=== PATIENT | female | born 1955 | race Caucasian/White ===

== ENCOUNTER 2017-12-25 12:46 | Inpatient (IN) | payer OTHER ==
[~2017-12-25] VITALS: Ht 172.7 cm; Wt 114.8 kg
[2017-12-25 12:56] VITALS: BP 89/71
[2017-12-25] MEDS ORDERED: INSULIN REGULAR, HUMAN 100 UNIT/ML VIAL IVP ONE ×2 (13:05→14:15)
[2017-12-25] MEDS ORDERED: ALBUTEROL 0.083% 2.5 MG/3 ML NEBU INH ONE (13:05)
[2017-12-25] MEDS ORDERED: IPRATROPIUM 0.02% 0.5 MG/2.5 ML NEBU INH ONE (13:05)
[2017-12-25 13:31] LABS: MEAN CORPUSCULAR HEMOGLOBIN 25 pg (27-31); MEAN CORPUSCULAR HGB CONC 31 g/dL (33-37); MEAN CORPUSCULAR VOLUME 81.7 fL (80-94); PLATELET COUNT (AUTO) 377 K/uL (140-450); RED BLOOD CELL COUNT(AUTO) 2.47 MIL/uL (4.20-5.40); RED CELL DISTRIBUTION WIDTH 16.9 % (11.6-13.7); WHITE BLOOD COUNT (AUTO) 20.5 K/uL (4.8-10.8)
[2017-12-25 13:43] LABS: ALBUMIN 2.7 g/dL (3.4-5.0); ANION GAP 24.8 (8-16); CARBON DIOXIDE 19.8 mmol/L (21-32); CREATININE 1.9 mg/dL (0.6-1.3); HEMATOCRIT 20.1 % (36-48); HEMOGLOBIN 6.3 g/dL (12.0-16.0); POTASSIUM 5.6 mmol/L (3.5-5.1); TOTAL BILIRUBIN 0.5 mg/dL (0.0-1.0)
[2017-12-25] MEDS ORDERED: ATOR40TA PO (13:43)
[2017-12-25] MEDS ORDERED: METO50TE2 PO (13:43)
[2017-12-25] MEDS ORDERED: DILT-135 (13:43)
[2017-12-25] MEDS ORDERED: PRED10TA5 PO ×2 (13:43)
[2017-12-25] MEDS ORDERED: WARF2.5T77 PO (13:43)
[2017-12-25] MEDS ORDERED: GABA300C PO (13:43)
[2017-12-25] MEDS ORDERED: FURO-572 PO (13:43)
[2017-12-25] MEDS ORDERED: WARF-18 PO (13:43)
[2017-12-25 13:45] LABS: LYMPHOCYTES % (MANUAL) 7 % (20-46); MONOCYTES % (MANUAL) 5 % (5-12)
[2017-12-25] MEDS ORDERED: DIGOXIN 0.25 MG/ML AMP IV ONE (13:45)
[2017-12-25 13:49] LABS: D-DIMER < 100 ng/ml (0-400)
[2017-12-25 13:57] LABS: PROTHROMBIN TIME 53.1 secs (10.8-13.4)
[2017-12-25] MEDS ORDERED: NACL 0.9% 1,000 ML IV SCH (14:11)
[2017-12-25] MEDS ORDERED: SODIUM BICARBONATE 8.4% PFS 50 MEQ/50 ML SYR IVP ONE (14:15)
[2017-12-25] MEDS ORDERED: SODIUM POLYSTYRENE 15 GM/60 ML UDBTL PO ONE (14:15)
[2017-12-25] MEDS ORDERED: ACETAMINOPHEN 325 MG TAB PO PRN (15:50)
[2017-12-25 17:00] VITALS: BP 100/53
[2017-12-25] MEDS: DILTIAZEM 30 MG TAB PO SCH ×3 (18:00→23:54)
[2017-12-25] MEDS ORDERED: DIGOXIN 0.25 MG/ML AMP IV SCH (18:55)
[2017-12-25] MEDS ORDERED: ALBUTEROL 0.083% 2.5 MG/3 ML NEBU IH SCH (19:00)
[2017-12-25] MEDS: METOPROLOL 25 MG TAB PO SCH (19:14)
[2017-12-25 19:25] VITALS: BP 123/71
[2017-12-25] MEDS: FUROSEMIDE 20 MG/2 ML VIAL IVP SCH (21:00)
[2017-12-25] MEDS ORDERED: FUROSEMIDE 40 MG/4 ML VIAL IVP SCH (22:00)
[2017-12-25] MEDS: INSULIN LANTUS 100 UNITS/ML 10 ML VIAL SUBQ SCH (22:28)
[2017-12-25 22:36] LABS: CREATINE KINASE MB 1.5 ng/mL (0-3.6)
[2017-12-25] MEDS ORDERED: AMIODARONE 450 MG in DEXTROSE 5% 250 ML IV SCH (23:35)
[2017-12-25] MEDS ORDERED: AMIODARONE 450 MG/9 ML VIAL IV ONE (23:49)
[2017-12-26] VITALS (12 sets, daily range): BP systolic 91–131; BP diastolic 50–87
[2017-12-26] MEDS ORDERED: AMIODARONE 150 MG in DEXTROSE 5% 100 ML IV SCH ×2
[2017-12-26] MEDS ORDERED: AMIODARONE 150 MG/3 ML VIAL IV ONE (00:02)
[2017-12-26] MEDS: ALBUTEROL 0.083% 2.5 MG/3 ML NEBU IH PRN (00:41)
[2017-12-26] MEDS: DILTIAZEM 30 MG TAB PO SCH ×4 (05:50→23:32)
[2017-12-26 07:00] LABS: HEMATOCRIT 25.3 % (36-48); HEMOGLOBIN 8.1 g/dL (12.0-16.0); MEAN CORPUSCULAR HEMOGLOBIN 27 pg (27-31); MEAN CORPUSCULAR HGB CONC 32 g/dL (33-37); MEAN CORPUSCULAR VOLUME 82.5 fL (80-94); PLATELET COUNT (AUTO) 249 K/uL (140-450); RED BLOOD CELL COUNT(AUTO) 3.07 MIL/uL (4.20-5.40); RED CELL DISTRIBUTION WIDTH 17.1 % (11.6-13.7); WHITE BLOOD COUNT (AUTO) 16.2 K/uL (4.8-10.8)
[2017-12-26 08:49] LABS: PHOSPHORUS 3.7 mg/dL (2.5-4.9)
[2017-12-26 08:53] LABS: ALBUMIN 2.7 g/dL (3.4-5.0); ANION GAP 14.5 (8-16); CARBON DIOXIDE 30.1 mmol/L (21-32); CREATININE 1.6 mg/dL (0.6-1.3); POTASSIUM 3.6 mmol/L (3.5-5.1); TOTAL BILIRUBIN 0.6 mg/dL (0.0-1.0)
[2017-12-26] MEDS ORDERED: ASPIRIN 81 MG TAB.CHEW PO SCH (09:00)
[2017-12-26] MEDS: METOPROLOL 25 MG TAB PO SCH ×2 (09:07→20:19)
[2017-12-26] MEDS: FUROSEMIDE 20 MG/2 ML VIAL IVP SCH ×2 (09:07→20:19)
[2017-12-26] MEDS: INSULIN LANTUS 100 UNITS/ML 10 ML VIAL SUBQ SCH ×2 (09:15→20:24)
[2017-12-26 09:18] LABS: LYMPHOCYTES % (MANUAL) 8 % (20-46); MONOCYTES % (MANUAL) 4 % (5-12)
[2017-12-26] MEDS ORDERED: DEXTROSE 50% 50 ML SYR IVP PRN (12:00)
[2017-12-26] MEDS: INSULIN LISPRO SLIDING SCALE 100 UNITS/ML VIAL SUBQ PRN ×3 (12:05→20:22)
[2017-12-26] MEDS: MORPHINE SULFATE 4 MG/ML SYR IVP PRN (12:07)
[2017-12-26] MEDS ORDERED: PROBIOTIC SCREEN 1 EA MISC MC PRN (14:50)
[2017-12-26] MEDS: BLOOD GLUCOSE MONITORING 1 DEV DEV FS SCH ×2 (16:32→20:20)
[2017-12-26 17:25] LABS: CREATINE KINASE MB 1.1 ng/mL (0-3.6)
[2017-12-26] MEDS: ONDANSETRON 4 MG/2 ML VIAL IVP PRN (17:33)
[2017-12-27] VITALS (12 sets, daily range): BP systolic 93–122; BP diastolic 51–67
[2017-12-27] MEDS: DILTIAZEM 30 MG TAB PO SCH ×3 (05:22→17:12)
[2017-12-27 07:15] LABS: BASOPHILS # (AUTO) 0.1 K/uL (0.00-0.22); BASOPHILS % (AUTO) 0.5 % (0.0-2.0); EOSINOPHILS # (AUTO) 0.2 K/uL (0-0.4); EOSINOPHILS % (AUTO) 1.5 % (0.0-4.0); HEMOGLOBIN 7.3 g/dL (12.0-16.0); LYMPHOCYTES # (AUTO) 1.2 K/uL (2.5-16.5); LYMPHOCYTES % (AUTO) 9.3 % (20.5-51.1); MEAN CORPUSCULAR HEMOGLOBIN 26 pg (27-31); MEAN CORPUSCULAR HGB CONC 32 g/dL (33-37); MEAN CORPUSCULAR VOLUME 83.5 fL (80-94); MONOCYTES # (AUTO) 0.7 K/uL (0.8-1.0); MONOCYTES % (AUTO) 5.7 % (1.7-9.3); NEUTROPHILS # (AUTO) 10.6 K/uL (1.8-7.7); PLATELET COUNT (AUTO) 203 K/uL (140-450); RED BLOOD CELL COUNT(AUTO) 2.75 MIL/uL (4.20-5.40); RED CELL DISTRIBUTION WIDTH 17.2 % (11.6-13.7); WHITE BLOOD COUNT (AUTO) 12.7 K/uL (4.8-10.8)
[2017-12-27] MEDS: BLOOD GLUCOSE MONITORING 1 DEV DEV FS SCH ×4 (07:37→20:08)
[2017-12-27] MEDS: INSULIN LISPRO SLIDING SCALE 100 UNITS/ML VIAL SUBQ PRN ×3 (07:40→20:28)
[2017-12-27 07:41] LABS: ANION GAP 8.1 (8-16); CARBON DIOXIDE 34.9 mmol/L (21-32); CREATININE 0.8 mg/dL (0.6-1.3)
[2017-12-27] MEDS: METOPROLOL 25 MG TAB PO SCH ×2 (08:46→20:24)
[2017-12-27] MEDS: FUROSEMIDE 20 MG/2 ML VIAL IVP SCH ×2 (08:46→20:24)
[2017-12-27] MEDS: INSULIN LANTUS 100 UNITS/ML 10 ML VIAL SUBQ SCH ×2 (08:54→20:27)
[2017-12-27] MEDS: ONDANSETRON 4 MG/2 ML VIAL IVP PRN (09:54)
[2017-12-27] MEDS: MORPHINE SULFATE 4 MG/ML SYR IVP PRN (09:54)
[2017-12-27] MEDS ORDERED: KCL 20 MEQ/WATER INJ PREMIX 200 ML IV SCH (10:00)
[2017-12-27] MEDS ORDERED: GABAPENTIN 300 MG CAP ONE (20:21)
[2017-12-27] MEDS: GABAPENTIN 300 MG CAP PO SCH (20:24)
[2017-12-28] VITALS (10 sets, daily range): BP systolic 92–133; BP diastolic 46–75
[2017-12-28] MEDS: DILTIAZEM 30 MG TAB PO SCH ×4 (06:03→17:38)
[2017-12-28] MEDS: BLOOD GLUCOSE MONITORING 1 DEV DEV FS SCH ×4 (06:16→20:55)
[2017-12-28 07:12] LABS: BASOPHILS % (AUTO) 0.1 % (0.0-2.0); EOSINOPHILS # (AUTO) 0.1 K/uL (0-0.4); EOSINOPHILS % (AUTO) 1.4 % (0.0-4.0); HEMATOCRIT 27.5 % (36-48); HEMOGLOBIN 8.8 g/dL (12.0-16.0); LYMPHOCYTES # (AUTO) 1.2 K/uL (2.5-16.5); LYMPHOCYTES % (AUTO) 12.4 % (20.5-51.1); MEAN CORPUSCULAR HEMOGLOBIN 27 pg (27-31); MEAN CORPUSCULAR HGB CONC 32 g/dL (33-37); MEAN CORPUSCULAR VOLUME 84.3 fL (80-94); MONOCYTES # (AUTO) 0.6 K/uL (0.8-1.0); MONOCYTES % (AUTO) 6.2 % (1.7-9.3); NEUTROPHILS # (AUTO) 7.9 K/uL (1.8-7.7); NEUTROPHILS % (AUTO) 79.9 % (42.2-75.2); PLATELET COUNT (AUTO) 189 K/uL (140-450); RED BLOOD CELL COUNT(AUTO) 3.26 MIL/uL (4.20-5.40); RED CELL DISTRIBUTION WIDTH 17.3 % (11.6-13.7); WHITE BLOOD COUNT (AUTO) 9.9 K/uL (4.8-10.8)
[2017-12-28 07:27] LABS: ALBUMIN 2.4 g/dL (3.4-5.0); ANION GAP 6.1 (8-16); CARBON DIOXIDE 37.2 mmol/L (21-32); CREATININE 0.7 mg/dL (0.6-1.3); POTASSIUM 3.3 mmol/L (3.5-5.1); TOTAL BILIRUBIN 0.5 mg/dL (0.0-1.0)
[2017-12-28] MEDS: METOPROLOL 25 MG TAB PO SCH ×2 (08:35→20:49)
[2017-12-28] MEDS: FUROSEMIDE 20 MG/2 ML VIAL IVP SCH ×2 (08:35→20:48)
[2017-12-28] MEDS: GABAPENTIN 300 MG CAP PO SCH ×3 (08:36→20:49)
[2017-12-28] MEDS: INSULIN LANTUS 100 UNITS/ML 10 ML VIAL SUBQ SCH ×2 (08:38→20:44)
[2017-12-28] MEDS ORDERED: POTASSIUM CHLORIDE 10 MEQ TABER PO SCH (09:00)
[2017-12-28] MEDS: INSULIN LISPRO SLIDING SCALE 100 UNITS/ML VIAL SUBQ PRN ×3 (11:51→20:46)
[2017-12-28] MEDS ORDERED: GABAPENTIN 300 MG CAP PO SCH (17:00)
[2017-12-28] MEDS ORDERED: INTERDRY CLOTH TP SCH (22:20)
[2017-12-29] VITALS: BP 122/68
[2017-12-29] MEDS: DILTIAZEM 30 MG TAB PO SCH ×4 (01:02→18:32)
[2017-12-29 04:00] VITALS: BP 128/67
[2017-12-29] MEDS: GABAPENTIN 300 MG CAP PO SCH ×3 (04:30→21:05)
[2017-12-29 07:04] LABS: EOSINOPHILS # (AUTO) 0.1 K/uL (0-0.4); EOSINOPHILS % (AUTO) 1.3 % (0.0-4.0); HEMATOCRIT 28.4 % (36-48); HEMOGLOBIN 9.4 g/dL (12.0-16.0); LYMPHOCYTES # (AUTO) 1.1 K/uL (2.5-16.5); LYMPHOCYTES % (AUTO) 10.6 % (20.5-51.1); MEAN CORPUSCULAR HEMOGLOBIN 28 pg (27-31); MEAN CORPUSCULAR HGB CONC 33 g/dL (33-37); MONOCYTES # (AUTO) 0.8 K/uL (0.8-1.0); MONOCYTES % (AUTO) 7.4 % (1.7-9.3); NEUTROPHILS # (AUTO) 8.5 K/uL (1.8-7.7); NEUTROPHILS % (AUTO) 80.7 % (42.2-75.2); PLATELET COUNT (AUTO) 206 K/uL (140-450); RED BLOOD CELL COUNT(AUTO) 3.34 MIL/uL (4.20-5.40); RED CELL DISTRIBUTION WIDTH 17.1 % (11.6-13.7); WHITE BLOOD COUNT (AUTO) 10.5 K/uL (4.8-10.8)
[2017-12-29 07:23] LABS: ALBUMIN 2.7 g/dL (3.4-5.0); ANION GAP 9.3 (8-16); CARBON DIOXIDE 34.6 mmol/L (21-32); CREATININE 0.8 mg/dL (0.6-1.3); POTASSIUM 3.9 mmol/L (3.5-5.1); TOTAL BILIRUBIN 0.6 mg/dL (0.0-1.0)
[2017-12-29] MEDS: BLOOD GLUCOSE MONITORING 1 DEV DEV FS SCH ×4 (07:28→21:04)
[2017-12-29 07:42] LABS: PROTHROMBIN TIME 14.7 secs (10.8-13.4)
[2017-12-29 08:00] VITALS: BP 111/72
[2017-12-29] MEDS: FUROSEMIDE 20 MG/2 ML VIAL IVP SCH ×2 (08:56→21:05)
[2017-12-29] MEDS: METOPROLOL 25 MG TAB PO SCH ×2 (08:56→21:05)
[2017-12-29] MEDS: INSULIN LANTUS 100 UNITS/ML 10 ML VIAL SUBQ SCH ×2 (09:01→21:16)
[2017-12-29] MEDS: INTERDRY CLOTH TP SCH ×2 (09:02→21:06)
[2017-12-29] MEDS: ALBUTEROL 0.083% 2.5 MG/3 ML NEBU IH PRN ×2 (10:47→19:20)
[2017-12-29 12:00] VITALS: BP 128/72
[2017-12-29] MEDS: INSULIN LISPRO SLIDING SCALE 100 UNITS/ML VIAL SUBQ PRN ×3 (12:29→21:16)
[2017-12-29] MEDS: AMPICILLIN 1,000 MG in NACL 0.9% 50 ML IV SCH ×2 (13:47→18:37)
[2017-12-29] MEDS: LACTULOSE 20 GM/30 ML UDC PO SCH ×2 (13:47→18:31)
[2017-12-29] MEDS: SENNA 8.6 MG TAB PO SCH ×3 (13:47→21:05)
[2017-12-29 16:00] VITALS: BP 121/64
[2017-12-29] MEDS ORDERED: BOWEL EVACUANT DRINK 4,000 ML PDS PO SCH (16:00)
[2017-12-29 20:00] VITALS: BP 116/61
[2017-12-29] MEDS ORDERED: MAGNESIUM CITRATE 300 ML BTL PO SCH (21:00)
[2017-12-30] VITALS (8 sets, daily range): BP systolic 90–139; BP diastolic 45–74
[2017-12-30] MEDS: DILTIAZEM 30 MG TAB PO SCH ×4 (00:09→17:22)
[2017-12-30] MEDS: AMPICILLIN 1,000 MG in NACL 0.9% 50 ML IV SCH ×4 (00:09→17:22)
[2017-12-30] MEDS: GABAPENTIN 300 MG CAP PO SCH ×3 (05:13→20:13)
[2017-12-30] MEDS: INSULIN LISPRO SLIDING SCALE 100 UNITS/ML VIAL SUBQ PRN ×2 (06:30→20:26)
[2017-12-30] MEDS: BLOOD GLUCOSE MONITORING 1 DEV DEV FS SCH ×4 (06:31→20:23)
[2017-12-30 06:52] LABS: BASOPHILS % (AUTO) 0.1 % (0.0-2.0); EOSINOPHILS # (AUTO) 0.1 K/uL (0-0.4); EOSINOPHILS % (AUTO) 1.3 % (0.0-4.0); HEMATOCRIT 26.8 % (36-48); HEMOGLOBIN 8.7 g/dL (12.0-16.0); LYMPHOCYTES # (AUTO) 1.1 K/uL (2.5-16.5); LYMPHOCYTES % (AUTO) 11.4 % (20.5-51.1); MEAN CORPUSCULAR HEMOGLOBIN 28 pg (27-31); MEAN CORPUSCULAR HGB CONC 32 g/dL (33-37); MEAN CORPUSCULAR VOLUME 85.3 fL (80-94); MONOCYTES # (AUTO) 0.6 K/uL (0.8-1.0); MONOCYTES % (AUTO) 6.9 % (1.7-9.3); NEUTROPHILS # (AUTO) 7.5 K/uL (1.8-7.7); NEUTROPHILS % (AUTO) 80.3 % (42.2-75.2); PLATELET COUNT (AUTO) 194 K/uL (140-450); RED BLOOD CELL COUNT(AUTO) 3.14 MIL/uL (4.20-5.40); RED CELL DISTRIBUTION WIDTH 18.5 % (11.6-13.7); WHITE BLOOD COUNT (AUTO) 9.3 K/uL (4.8-10.8)
[2017-12-30 07:26] LABS: ALBUMIN 2.6 g/dL (3.4-5.0); ANION GAP 11.4 (8-16); CARBON DIOXIDE 33.3 mmol/L (21-32); CREATININE 0.8 mg/dL (0.6-1.3); POTASSIUM 3.7 mmol/L (3.5-5.1); TOTAL BILIRUBIN 0.6 mg/dL (0.0-1.0)
[2017-12-30] MEDS: METOPROLOL 25 MG TAB PO SCH ×2 (08:58→20:12)
[2017-12-30] MEDS: SENNA 8.6 MG TAB PO SCH ×2 (08:58→12:19)
[2017-12-30] MEDS: LACTULOSE 20 GM/30 ML UDC PO SCH ×2 (08:58→12:19)
[2017-12-30] MEDS: FUROSEMIDE 20 MG/2 ML VIAL IVP SCH ×2 (08:59→20:16)
[2017-12-30] MEDS: INSULIN LANTUS 100 UNITS/ML 10 ML VIAL SUBQ SCH ×2 (08:59→20:26)
[2017-12-30] MEDS: INTERDRY CLOTH TP SCH ×2 (09:00→20:28)
[2017-12-30 13:34] LABS: PROTHROMBIN TIME 10.3 secs (10.8-13.4)
[2017-12-30] MEDS ORDERED: MIDAZOLAM 2 MG/2 ML VIAL ONE ×2 (13:48→13:52)
[2017-12-30] MEDS ORDERED: LIDOCAINE 2% 100 MG/5 ML UJET TP ONE (13:48)
[2017-12-30] MEDS ORDERED: fentaNYL 0.05 MG/ML VIAL ONE (13:48)
[2017-12-30] MEDS ORDERED: diphenhydrAMINE 50 MG/ML VIAL ONE (13:52)
[2017-12-30] MEDS: fentaNYL 0.05 MG/ML VIAL ONE ×4 (14:02→14:12)
[2017-12-30] MEDS ORDERED: WARFARIN 5 MG TAB PO SCH ×2 (17:00)
[2017-12-30] MEDS: FERROUS SULFATE 325 MG TABEC PO SCH (17:21)
[2017-12-30] MEDS: SUCRALFATE 1 GM TAB PO SCH (17:21)
[2017-12-30] MEDS: PANTOPRAZOLE 40 MG TABEC PO SCH (20:13)
[2017-12-30] MEDS ORDERED: ATORVASTATIN 20 MG TAB PO SCH (21:00)
[2017-12-31] VITALS: BP 117/66
[2017-12-31] MEDS: DILTIAZEM 30 MG TAB PO SCH ×3 (00:26→12:11)
[2017-12-31] MEDS: AMPICILLIN 1,000 MG in NACL 0.9% 50 ML IV SCH (00:26)
[2017-12-31 04:00] VITALS: BP 110/60
[2017-12-31] MEDS: GABAPENTIN 300 MG CAP PO SCH ×2 (05:17→12:11)
[2017-12-31] MEDS: BLOOD GLUCOSE MONITORING 1 DEV DEV FS SCH ×2 (05:50→12:15)
[2017-12-31 06:46] LABS: BASOPHILS % (AUTO) 0.2 % (0.0-2.0); EOSINOPHILS # (AUTO) 0.1 K/uL (0-0.4); HEMATOCRIT 25.3 % (36-48); HEMOGLOBIN 8.2 g/dL (12.0-16.0); LYMPHOCYTES # (AUTO) 0.7 K/uL (2.5-16.5); MEAN CORPUSCULAR HEMOGLOBIN 28 pg (27-31); MEAN CORPUSCULAR HGB CONC 32 g/dL (33-37); MEAN CORPUSCULAR VOLUME 85.4 fL (80-94); MONOCYTES # (AUTO) 0.7 K/uL (0.8-1.0); MONOCYTES % (AUTO) 7.5 % (1.7-9.3); NEUTROPHILS # (AUTO) 7.4 K/uL (1.8-7.7); NEUTROPHILS % (AUTO) 83.3 % (42.2-75.2); PLATELET COUNT (AUTO) 186 K/uL (140-450); RED BLOOD CELL COUNT(AUTO) 2.96 MIL/uL (4.20-5.40); RED CELL DISTRIBUTION WIDTH 18.6 % (11.6-13.7); WHITE BLOOD COUNT (AUTO) 8.9 K/uL (4.8-10.8)
[2017-12-31] MEDS: INSULIN LISPRO SLIDING SCALE 100 UNITS/ML VIAL SUBQ PRN ×2 (06:47→13:06)
[2017-12-31] MEDS: SUCRALFATE 1 GM TAB PO SCH ×2 (06:49→12:11)
[2017-12-31 07:26] LABS: ANION GAP 10.3 (8-16); CARBON DIOXIDE 31.8 mmol/L (21-32); CREATININE 0.8 mg/dL (0.6-1.3); POTASSIUM 3.1 mmol/L (3.5-5.1)
[2017-12-31 07:28] LABS: PROTHROMBIN TIME 10.2 secs (10.8-13.4)
[2017-12-31 08:00] VITALS: BP 115/54
[2017-12-31] MEDS ORDERED: LOSARTAN 25 MG TAB PO SCH (09:00)
[2017-12-31] MEDS ORDERED: LACTULOSE 20 GM/30 ML UDC PO SCH (09:00)
[2017-12-31] MEDS ORDERED: ENOXAPARIN 40 MG/0.4 ML SYR SUBQ SCH (09:00)
[2017-12-31] MEDS: METOPROLOL 25 MG TAB PO SCH (09:32)
[2017-12-31] MEDS: PANTOPRAZOLE 40 MG TABEC PO SCH (09:33)
[2017-12-31] MEDS: FUROSEMIDE 20 MG/2 ML VIAL IVP SCH (09:33)
[2017-12-31] MEDS: FERROUS SULFATE 325 MG TABEC PO SCH ×2 (09:33→12:11)
[2017-12-31] MEDS: INSULIN LANTUS 100 UNITS/ML 10 ML VIAL SUBQ SCH (09:35)
[2017-12-31] MEDS ORDERED: POTASSIUM CHLORIDE 10 MEQ TABER PO SCH (11:21)
[2017-12-31 12:00] VITALS: BP 107/74
[2017-12-31] MEDS: INTERDRY CLOTH TP SCH (13:10)
[2017-12-31] MEDS ORDERED: AMOX500C25 PO (13:18)
[2017-12-31] MEDS ORDERED: CLAR500T PO (13:18)
[2017-12-31] MEDS ORDERED: PANT40EC28 PO (13:18)
[2017-12-31] MEDS ORDERED: LOSA25TA1 PO (13:18)
[2017-12-31] MEDS ORDERED: LANTUS SUBQ (13:18)
[2017-12-31] MEDS ORDERED: FURO40TA9 PO (13:18)
[2017-12-31] MEDS ORDERED: WARFARIN 5 MG TAB PO SCH (14:35)
[2017-12-31 16:00] VITALS: BP 101/51
[2017-12-31] MEDS ORDERED: CLARITHROMYCIN 500 MG TAB PO SCH (21:00)
[2017-12-31] MEDS ORDERED: AMOXICILLIN 500 MG CAP PO SCH (21:00)
[2018-01-01] MEDS ORDERED: FUROSEMIDE 40 MG TAB PO SCH (09:00)
== END 2017-12-31 17:15 | disposition home or self-care (01) | DRG 241 ==
LOC: MED 12:46 → UNDOADMIN 15:56 → MTU 15:56 → MIC 22:40 → MTU 12-28 15:34
PROVIDERS: ADMIT Internal Medicine Pulmonary Disease; ATTEND Internal Medicine Pulmonary Disease
PROC: 30233N1 Transfusion of Nonautologous Red Blood Cells into Peripheral Vein, Percutaneous Approach (ICD-10-PCS; principal; 2017-12-25)
PROC: 5A09357 Assistance with Respiratory Ventilation, Less than 24 Consecutive Hours, Continuous Positive Airway Pressure (ICD-10-PCS; 2017-12-25)
PROC: 0DBH8ZZ Excision of Cecum, Via Natural or Artificial Opening Endoscopic (ICD-10-PCS; 2017-12-30)
PROC: 0DB68ZX Excision of Stomach, Via Natural or Artificial Opening Endoscopic, Diagnostic (ICD-10-PCS; 2017-12-30 13:45)
DX: K25.4 Chronic or unspecified gastric ulcer with hemorrhage (principal); J96.00 Acute respiratory failure, unspecified whether with hypoxia or hypercapnia; E11.00 Type 2 diabetes mellitus with hyperosmolarity without nonketotic hyperglycemic-hyperosmolar coma (NKHHC); I50.43 Acute on chronic combined systolic (congestive) and diastolic (congestive) heart failure; N17.9 Acute kidney failure, unspecified; E87.2 Acidosis; E11.42 Type 2 diabetes mellitus with diabetic polyneuropathy; E11.22 Type 2 diabetes mellitus with diabetic chronic kidney disease; I13.0 Hypertensive heart and chronic kidney disease with heart failure and stage 1 through stage 4 chronic kidney disease, or unspecified chronic kidney disease; I48.2 Chronic atrial fibrillation; J44.9 Chronic obstructive pulmonary disease, unspecified; E11.65 Type 2 diabetes mellitus with hyperglycemia; E44.1 Mild protein-calorie malnutrition; E87.5 Hyperkalemia; D64.9 Anemia, unspecified; F17.200 Nicotine dependence, unspecified, uncomplicated; E66.9 Obesity, unspecified; F11.90 Opioid use, unspecified, uncomplicated; F12.90 Cannabis use, unspecified, uncomplicated; D72.829 Elevated white blood cell count, unspecified; K59.00 Constipation, unspecified; I25.10 Atherosclerotic heart disease of native coronary artery without angina pectoris; N18.9 Chronic kidney disease, unspecified; T45.515A Adverse effect of anticoagulants, initial encounter; K64.8 Other hemorrhoids; K57.91 Diverticulosis of intestine, part unspecified, without perforation or abscess with bleeding; F19.10 Other psychoactive substance abuse, uncomplicated; K63.5 Polyp of colon; Z68.38 Body mass index [BMI] 38.0-38.9, adult; I25.2 Old myocardial infarction; Y92.89 Other specified places as the place of occurrence of the external cause; Z79.01 Long term (current) use of anticoagulants; Z91.19 Patient's noncompliance with other medical treatment and regimen; Z95.1 Presence of aortocoronary bypass graft; Z95.2 Presence of prosthetic heart valve; Z95.0 Presence of cardiac pacemaker
CPT/HCPCS: 36415; 36600; 71045; 80048; 80053; 82272; 82550; 82553; 82803; 82948; 83735; 84100; 84484; 85025; 85379; 85610; 85730; 86677; 86886; 86900; 86901; 86920; 87040; 87081; 88305; 93005; 94640; 97110; 97116; 97140; 97530; J0282; J0290; J1160; J1200; J1644; J1650; J1815; J1940; J2250; J2270; J2405; J3010; J3480; J7030; J7060; J7613; J7644; P9016; Q0092